=== PATIENT | female | born 1975 | race Caucasian/White ===

== ENCOUNTER → 2017-03-02 | Outpatient (CLI) | payer BC ==
[~2017-03-02] MED LIST: ANAPROX DS550 MG PO; CLARITIN10 MG PO; CLINDAMYCIN150 MG PO; HYDROCODONE BIT1 T11 PO; HYOMAX0.125 MG PO; INDOCIN50 MG PO; KEFLEX500 MG PO; MEDROL DOSEPAK4 MG PO; MOTRIN800 MG PO; NAPROSYN500 MG PO; NKHM; PEN-VEE K500 MG PO; SEPTRA DS 800 M1 TAB PO; VICODIN 5/500 505 MG PO; ZOFRAN4 MG PO
== END | disposition home or self-care (01) ==
LOC: LAB 10:41
DX: R53.83 Other fatigue (principal); J45.909 Unspecified asthma, uncomplicated; Z87.891 Personal history of nicotine dependence

== ENCOUNTER → 2017-03-09 | Outpatient (CLI) | payer BC | END | disposition home or self-care (01) | LOC: MAMMO 03:54 | DX: Z12.31 Encounter for screening mammogram for malignant neoplasm of breast (principal) ==

== ENCOUNTER → 2017-03-16 | Outpatient (CLI) | payer BC | END | disposition home or self-care (01) | LOC: MAMMO 08:44 | DX: N60.01 Solitary cyst of right breast (principal); N63 Unspecified lump in breast ==

== ENCOUNTER → 2017-09-04 | Outpatient (CLI) | payer BC ==
[2017-09-04 07:34] LABS: HEMATOCRIT 43.3 % (37.0-47.0); HEMOGLOBIN 14.6 g/dl (12.0-16.0); MEAN CELL VOLUME 90.2 fl (81.0-99.0); MEAN CORPUSCULAR HGB 30.4 pg (27.0-31.0); MEAN CORPUSCULAR HGB CONC 33.7 g/dl (33.0-37.0); MEAN PLATELET VOLUME 10.3 fl (9.6-12.3); RED BLOOD COUNT 4.8 10*6/uL (4.10-5.10); RED CELL DISTRI WIDTH 12.8 % (0-14.5); WHITE BLOOD COUNT 7.7 10*3/uL (4.8-10.8)
[2017-09-04 08:01] LABS: ALBUMIN 3.7 gm/dl (3.1-4.5); ALKALINE PHOSPHATASE 130 U/L (45-117); BUN 10 mg/dl (7-24); CHLORIDE 105 mmol/L (98-107); CREATININE 0.76 mg/dL (0.55-1.02); POTASSIUM 3.5 mmol/L (3.5-5.1); SGOT/AST 25 IU/L (3-35); SGPT/ALT 54 U/L (12-78); SODIUM 138 mmol/L (136-145); TOTAL PROTEIN 7.9 gm/dL (6.4-8.2)
[2017-09-05 08:13] LABS: RHEUMATOID ARTHRITIS FACTOR <10.0 IU/mL (0.0-13.9)
[2017-09-05 10:03] LABS: ANA DIRECT Negative (Negative)
[2017-09-06 00:05] LABS: CCP ANTIBODIES IGG/IGA 4 units (0-19)
== END | disposition home or self-care (01) ==
LOC: LAB 06:47
PROVIDERS: Internal Medicine
DX: J44.9 Chronic obstructive pulmonary disease, unspecified (principal); E03.9 Hypothyroidism, unspecified; M06.9 Rheumatoid arthritis, unspecified

== ENCOUNTER → 2018-04-04 | Outpatient (CLI) | payer BC | END | disposition home or self-care (01) | LOC: MAMMO 04-02 16:00 | DX: Z12.31 Encounter for screening mammogram for malignant neoplasm of breast (principal) ==

== ENCOUNTER → 2019-03-07 | Outpatient (CLI) | payer OTHER | END | disposition home or self-care (01) | LOC: LAB 16:12 | DX: R23.2 Flushing (principal) ==

== ENCOUNTER → 2019-03-09 | Outpatient (CLI) | payer OTHER ==
[2019-03-13 16:11] LABS: 5-HIAA, URINE, 24 HR 2.5 mg/24 hr (0.0-14.9)
== END | disposition home or self-care (01) ==
LOC: LAB 09:01
PROVIDERS: Physician Assistant
DX: R23.2 Flushing (principal)

== ENCOUNTER → 2019-06-07 | Outpatient (CLI) | payer OTHER ==
[2019-06-07 07:28] LABS: HEMOGLOBIN 14.2 g/dl (12.0-16.0); MEAN CELL VOLUME 91.1 fl (81.0-99.0); MEAN CORPUSCULAR HGB 30.1 pg (27.0-31.0); MEAN PLATELET VOLUME 9.9 fl (9.6-12.3); RED BLOOD COUNT 4.72 10*6/uL (4.10-5.10); RED CELL DISTRI WIDTH 12.8 % (0-14.5); WHITE BLOOD COUNT 7.5 10*3/uL (4.8-10.8)
[2019-06-07 07:48] LABS: ALBUMIN 3.3 gm/dl (3.1-4.5); ALKALINE PHOSPHATASE 116 U/L (45-117); BUN 9 mg/dl (7-24); CHLORIDE 108 mmol/L (98-107); CHOLESTEROL 217 mg/dL (<200); CREATININE 0.78 mg/dL (0.55-1.02); HDL CHOLESTEROL 39 mg/dl (40-60); LDL CHOLESTEROL 151 mg/dL (9-159); SGOT/AST 27 IU/L (3-35); SODIUM 139 mmol/L (136-145); TOTAL PROTEIN 7.2 gm/dL (6.4-8.2); TRIGLYCERIDES 134 mg/dl (<150); VLDL CHOLESTEROL 27 mg/dL (6-40)
[2019-06-07 07:53] LABS: SGPT/ALT 84 U/L (12-78)
== END | disposition home or self-care (01) ==
LOC: LAB 06:08
PROVIDERS: Physician Assistant
DX: K21.9 Gastro-esophageal reflux disease without esophagitis (principal); R53.83 Other fatigue; E78.00 Pure hypercholesterolemia, unspecified

== ENCOUNTER → 2019-06-10 | Outpatient (CLI) | payer OTHER | END | disposition home or self-care (01) | LOC: MAMMO 00:07 | DX: Z12.31 Encounter for screening mammogram for malignant neoplasm of breast (principal); K21.9 Gastro-esophageal reflux disease without esophagitis ==

== ENCOUNTER 2019-11-12 10:33 | Emergency (ER) | payer OTHER ==
[~2019-11-12] VITALS: Ht 175.2 cm; Wt 83.9 kg
[2019-11-12 10:49] LABS: BASO % 0.5 % (0.0-1.0); EOS # 0.2 10*3/uL (0.0-0.4); EOS % 2.6 % (1.0-4.0); HEMATOCRIT 44.3 % (37.0-47.0); HEMOGLOBIN 14.5 g/dl (12.0-16.0); LYMPH # 2.8 10*3/uL (1.3-4.4); LYMPH % 35.6 % (27.0-41.0); MEAN CORPUSCULAR HGB 29.5 pg (27.0-31.0); MEAN CORPUSCULAR HGB CONC 32.7 g/dl (33.0-37.0); MEAN PLATELET VOLUME 9.8 fl (9.6-12.3); MONO # 0.6 10*3/uL (0.1-1.0); MONO % 8.2 % (3.0-9.0); NEUT # 4.1 10*3/uL (2.3-7.9); NEUT % 52.8 % (47.0-73.0); PLATELET COUNT AUTOMATED 503 10*3/uL (130-400); RED BLOOD COUNT 4.92 10*6/uL (4.10-5.10); RED CELL DISTRI WIDTH 12.7 % (0-14.5); WHITE BLOOD COUNT 7.7 10*3/uL (4.8-10.8)
[2019-11-12 11:00] LABS: ACT PARTIAL THROMBO TIME 27.2 SECONDS (20.0-32.1); INTERNATIONAL NORM RATIO 0.9 (2.0-3.5)
[2019-11-12 11:07] LABS: ALBUMIN 3.6 gm/dl (3.1-4.5); ALKALINE PHOSPHATASE 125 U/L (45-117); BUN 10 mg/dl (7-24); CHLORIDE 111 mmol/L (98-107); CREATININE 0.86 mg/dL (0.55-1.02); POTASSIUM 3.6 mmol/L (3.5-5.1); SGOT/AST 31 IU/L (3-35); SGPT/ALT 73 U/L (12-78); SODIUM 142 mmol/L (136-145); TOTAL PROTEIN 7.6 gm/dL (6.4-8.2)
[2019-11-12 11:09] LABS: TROPONIN I < 0.015 ng/ml (<0.045)
[2019-11-12 12:23] LABS: BILIRUBIN NEGATIVE (NEGATIVE); CLARITY SL CLOUDY (CLEAR); COLOR YELLOW (YELLOW); GLUCOSE NEGATIVE (NEGATIVE)
[2019-11-12 12:24] LABS: BACTERIA TRACE; BLOOD NEGATIVE (NEGATIVE); EPITHELIAL CELLS 0-2; KETONE NEGATIVE (NEGATIVE); LEUKO ESTERASE NEGATIVE (NEGATIVE); NITRITE NEGATIVE (NEGATIVE); PH 6.5 (5.0-9.0); RBC 0-2 rbc/hpf (0-2); SPECIFIC GRAVITY 1.005 (1.005-1.030); UROBILINOGEN 0.2 E.U./dl (0.2-1.0)
[2019-11-12 14:25] VITALS: BP 143/91
== END 2019-11-12 14:29 | disposition home or self-care (01) ==
LOC: ED 10:33
PROVIDERS: Emergency Medicine; Physician Assistant
DX: R07.89 Other chest pain (principal); Z88.8 Allergy status to other drugs, medicaments and biological substances; Z79.899 Other long term (current) drug therapy

== ENCOUNTER → 2020-07-03 | Outpatient (CLI) | payer OTHER ==
[2020-07-03 08:09] LABS: HEMATOCRIT 44.8 % (37.0-47.0); MEAN CELL VOLUME 89.4 fl (81.0-99.0); MEAN CORPUSCULAR HGB 29.3 pg (27.0-31.0); MEAN CORPUSCULAR HGB CONC 32.8 g/dl (33.0-37.0); MEAN PLATELET VOLUME 10.1 fl (9.6-12.3); RED BLOOD COUNT 5.01 10*6/uL (4.10-5.10); RED CELL DISTRI WIDTH 12.5 % (0-14.5)
[2020-07-03 08:48] LABS: ALBUMIN 3.5 gm/dl (3.1-4.5); ALKALINE PHOSPHATASE 121 U/L (45-117); BUN 10 mg/dl (7-24); CHLORIDE 109 mmol/L (98-107); CHOLESTEROL 234 mg/dL (<200); CREATININE 0.87 mg/dL (0.55-1.02); HDL CHOLESTEROL 40 mg/dl (40-60); LDL CHOLESTEROL 169 mg/dL (9-159); POTASSIUM 3.9 mmol/L (3.5-5.1); SGOT/AST 26 IU/L (3-35); SGPT/ALT 55 U/L (12-78); SODIUM 142 mmol/L (136-145); TOTAL PROTEIN 7.5 gm/dL (6.4-8.2); TRIGLYCERIDES 126 mg/dl (<150); VLDL CHOLESTEROL 25 mg/dL (6-40)
== END | disposition home or self-care (01) ==
LOC: LAB 00:20
PROVIDERS: ATTEND Physician Assistant
DX: R03.0 Elevated blood-pressure reading, without diagnosis of hypertension (principal); L71.9 Rosacea, unspecified; K21.9 Gastro-esophageal reflux disease without esophagitis

== ENCOUNTER → 2020-07-13 | Outpatient (CLI) | payer OTHER | END | disposition home or self-care (01) | LOC: MAMMO 07-06 15:30 | PROVIDERS: ATTEND Physician Assistant | DX: Z12.31 Encounter for screening mammogram for malignant neoplasm of breast (principal) ==

== ENCOUNTER → 2020-11-12 | Outpatient (CLI) | payer OTHER ==
[2020-11-12 08:05] LABS: BASO % 0.4 % (0.0-1.0); EOS # 0.3 10*3/uL (0.0-0.4); EOS % 3.7 % (1.0-4.0); HEMATOCRIT 47.5 % (37.0-47.0); LYMPH # 2.2 10*3/uL (1.3-4.4); LYMPH % 32.5 % (27.0-41.0); MEAN CELL VOLUME 88.6 fl (81.0-99.0); MEAN CORPUSCULAR HGB 28.5 pg (27.0-31.0); MEAN CORPUSCULAR HGB CONC 32.2 g/dl (33.0-37.0); MEAN PLATELET VOLUME 9.9 fl (9.6-12.3); MONO # 0.4 10*3/uL (0.1-1.0); MONO % 6.5 % (3.0-9.0); NEUT # 3.8 10*3/uL (2.3-7.9); NEUT % 56.8 % (47.0-73.0); PLATELET COUNT AUTOMATED 522 10*3/uL (130-400); RED BLOOD COUNT 5.36 10*6/uL (4.10-5.10); RED CELL DISTRI WIDTH 12.8 % (0-14.5); WHITE BLOOD COUNT 6.8 10*3/uL (4.8-10.8)
[2020-11-12 08:31] LABS: ALBUMIN 3.5 gm/dl (3.1-4.5); ALKALINE PHOSPHATASE 129 U/L (45-117); BUN 10 mg/dl (7-24); CHLORIDE 108 mmol/L (98-107); CHOLESTEROL 253 mg/dL (<200); CREATININE 0.84 mg/dL (0.55-1.02); HDL CHOLESTEROL 44 mg/dl (40-60); LDL CHOLESTEROL 179 mg/dL (9-159); SGOT/AST 32 IU/L (3-35); SGPT/ALT 64 U/L (12-78); SODIUM 140 mmol/L (136-145); TOTAL PROTEIN 7.6 gm/dL (6.4-8.2); TRIGLYCERIDES 151 mg/dl (<150); VLDL CHOLESTEROL 30 mg/dL (6-40)
== END | disposition home or self-care (01) ==
LOC: LAB 07:45
PROVIDERS: ATTEND Physician Assistant
DX: R59.0 Localized enlarged lymph nodes (principal); K21.9 Gastro-esophageal reflux disease without esophagitis; R03.0 Elevated blood-pressure reading, without diagnosis of hypertension

== ENCOUNTER → 2020-11-29 | Outpatient (CLI) | payer OTHER | END | disposition home or self-care (01) | LOC: US 13:25 | PROVIDERS: ATTEND Physician Assistant | DX: R59.0 Localized enlarged lymph nodes (principal) ==

== ENCOUNTER → 2021-08-02 | Outpatient (CLI) | payer OTHER | END | disposition home or self-care (01) | LOC: MAMMO 16:30 | PROVIDERS: ATTEND Physician Assistant | DX: Z12.31 Encounter for screening mammogram for malignant neoplasm of breast (principal) ==

== ENCOUNTER 2022-05-02 13:28 | Emergency (ER) | payer OTHER ==
[~2022-05-02] VITALS: Ht 175.2 cm; Wt 86.2 kg
[2022-05-02 14:22] LABS: BASO # 0.1 10*3/uL (0.0-0.1); BASO % 0.5 % (0.0-1.0); EOS # 0.4 10*3/uL (0.0-0.4); HEMATOCRIT 44.1 % (37.0-47.0); LYMPH # 2.3 10*3/uL (1.3-4.4); LYMPH % 24.6 % (27.0-41.0); MEAN CELL VOLUME 87.5 fl (81.0-99.0); MEAN CORPUSCULAR HGB 29.6 pg (27.0-31.0); MEAN CORPUSCULAR HGB CONC 33.8 g/dl (33.0-37.0); MEAN PLATELET VOLUME 10.1 fl (9.6-12.3); MONO # 0.5 10*3/uL (0.1-1.0); MONO % 5.4 % (3.0-9.0); NEUT # 6.1 10*3/uL (2.3-7.9); NEUT % 65.3 % (47.0-73.0); PLATELET COUNT AUTOMATED 488 10*3/uL (130-400); RED BLOOD COUNT 5.04 10*6/uL (4.10-5.10); RED CELL DISTRI WIDTH 12.8 % (0-14.5); WHITE BLOOD COUNT 9.3 10*3/uL (4.8-10.8)
[2022-05-02 14:35] LABS: ACT PARTIAL THROMBO TIME 30.8 SECONDS (20.0-32.1)
[2022-05-02 14:45] LABS: ALKALINE PHOSPHATASE 135 U/L (45-117); BUN 10 mg/dl (7-24); CHLORIDE 111 mmol/L (98-107); CREATININE 0.89 mg/dL (0.55-1.02); LIPASE 125 U/L (73-393); POTASSIUM 3.7 mmol/L (3.5-5.1); SGOT/AST 24 IU/L (3-35); SGPT/ALT 59 U/L (12-78); SODIUM 141 mmol/L (136-145); TOTAL PROTEIN 7.6 gm/dL (6.4-8.2)
[2022-05-02 14:52] LABS: BETA-HCG, QUANT < 1.0 mIU/mL (1-3)
[2022-05-02 16:37] VITALS: BP 146/95
[2022-05-02 17:10] LABS: BILIRUBIN Negative (Negative); BLOOD Negative (Negative); CLARITY Clear (Clear); COLOR Yellow (Yellow); GLUCOSE Negative (Negative); KETONE Negative (Negative); LEUKO ESTERASE Negative (Negative); NITRITE Negative (Negative); SPECIFIC GRAVITY 1.015 (1.001-1.030); UROBILINOGEN 0.2 E.U./dl (0.0-1.0)
[2022-05-02 17:50] LABS: BACTERIA 1+; WBC 0-2 wbc/hpf (0-5)
== END 2022-05-02 22:28 | disposition home or self-care (01) ==
LOC: ED 13:28
PROVIDERS: Emergency Medicine
DX: R07.9 Chest pain, unspecified (principal); K76.0 Fatty (change of) liver, not elsewhere classified; Z88.8 Allergy status to other drugs, medicaments and biological substances; Z98.51 Tubal ligation status; Z90.89 Acquired absence of other organs

== ENCOUNTER → 2022-11-14 | Outpatient (CLI) | payer OTHER | END | disposition home or self-care (01) | LOC: MAMMO 10-26 10:30 | PROVIDERS: ATTEND Physician Assistant | DX: Z12.31 Encounter for screening mammogram for malignant neoplasm of breast (principal); N64.89 Other specified disorders of breast ==